=== PATIENT | female | born 1955 | race Caucasian/White ===

== ENCOUNTER 2025-04-12 00:20 | Emergency (ER) | payer MEDICARE, OTHER, SELFPAY ==
[2025-04-12 00:21] VITALS: BMI 25.8
--- NOTE | 2025-04-12 00:26 | XR_ITS ---
Examination: Wrist, right 3 views Technique: Wrist AP, oblique, lateral 3 views Date and time of exam: April 12, 2025 0047 hours INDICATIONS: Ground-level fall last night with injury to the wrist, wrist pain. FINDINGS: No acute fracture. No dislocation No foreign body IMPRESSION: No acute fracture
[2025-04-12 00:39] VITALS: BP 104/61; PULSE 54; RESP 18; TEMP 36.7; O2SAT 97
--- NOTE | 2025-04-12 01:28 | PD.EDHAND ---
Upper Extremity Injury RME/HPI General Chief Complaint: Hand/Wrist Problems Stated Complaint: FALL L WRIST INJURY Time Seen by Provider: 04/12/25 01:20 Arrival date/time: 04/12/25 00:20 69F with history of HRT presents to ED w/ L wrist/hand pain and slip and fall backwards today. There is also some R knee pain, but patient is not concerned about it. Patient denies hitting head/neck. Some hand numbness. Limitations: no limitations Related Data Home Medications ?Medication ?Instructions ?Recorded ?Confirmed estradiol 0.5 mg tablet 1 tab PO QDAY ##0 10/15/13 Allergies Allergy/AdvReac Type Severity Reaction Status Date / Time No Known Allergies Allergy Verified 04/12/25 00:24 Review of Systems Review of Systems Systems Reviewed: All systems reviewed, normal except as documented Constitutional Constitutional: Reports system reviewed and no additional complaints, except as documented, Denies fever(s) and Denies headache(s) ENT Ears, Nose, Mouth, and Throat: Denies disequilibrium and Denies headache(s) Cardiovascular Cardiovascular: Reports system reviewed and no additional complaints, except as documented, Denies chest pain and Denies dyspnea Respiratory Respiratory: Reports system reviewed and no additional complaints, except as documented, Denies cough and Denies dyspnea Gastrointestinal Gastrointestinal: Reports system reviewed and no additional complaints, except as documented, Denies abdominal pain, Denies nausea and Denies vomiting Musculoskeletal Musculoskeletal: Reports as per HPI and Reports arthralgias Neurologic Neurologic: Reports system reviewed and no additional complaints, except as documented, Denies confusion, Denies disequilibrium and Denies headache(s) Psychiatric Psychiatric: Denies confusion Past Medical History Social History SMOKING STATUS: Never smoker ED Exam General Limitations: Present no limitations General appearance: Present alert and in no apparent distress Head Head exam: Present atraumatic Eye Eye exam: Present normal appearance, PERRL and EOMI ENT ENT exam: Present normal exam, normal oropharynx and mucous membranes moist Neck Neck exam: Present normal inspection, full ROM and trachea midline Chest Chest inspection: Present normal inspection and symmetric chest wall rise Respiratory Respiratory exam: Present normal lung sounds bilaterally Cardiovascular Cardiovascular exam: Present regular rate, normal rhythm and normal heart sounds Abdominal Exam Abdominal exam: Present soft and normal bowel sounds Expanded Upper Extremity Exam Forearm/Wrist exam: Present tenderness (L) and tenderness over anatomical snuff box Hand exam: Present tenderness Back Exam Back exam: Present normal inspection and full ROM Neurological Exam Neurological exam: Present alert, oriented X3 and CN II-XII intact Psychiatric Psychiatric exam: Present normal affect and normal mood Skin Skin exam: Present warm, dry, intact and normal color Course Quality Measures none Orders Category Date Time Status Splint / Immobilizer STAT Care 04/12/25 01:22 Active XR wrist comp LT min 3V Stat Exams 04/12/25 00:26 Taken HYDROcodone*/APAP 5/325 [[place] 5/325] Med 04/12/25 01:22 Discontinued 1 tab PO X1 ONE Vital Signs Vital signs: Vital Signs Temperature 98.1 F 04/12/25 00:39 Pulse Rate 54 L 04/12/25 00:39 Respiratory Rate 18 04/12/25 00:39 Blood Pressure 104/61 04/12/25 00:39 Pulse Oximetry (%) 97 04/12/25 00:39 Oxygen Delivery Method Room Air 04/12/25 00:39 O2 at 97% on RA and WNLs Extremity Injury MDM Narrative MDM Narrative:: 69F with history of HRT presents to ED w/ L wrist/hand pain and slip and fall backwards today. There is also some R knee pain, but patient is not concerned about it. Patient denies hitting head/neck. Some hand numbness. Physical exam reveals L wrist/hand tenderness, including anatomic snuffbox, and reduced ROM. No obvious swelling. R knee unremarkable. Gait normal. Speech normal. Patient is afebrile, calm, and alert. Wet XR read no gross fx pending official report. Will splint given anatomic snuffbox tenderness. Patient data External records reviewed:: None Clinical information provided by:: patient Social determinants that could affect healthcare access:: none Patient has the following chronic illnesses:: HRT How is presenting disease/condition affected by chronic disease/condition?: uneffected by Evaluation data The following diagnostics were reviewed and interpreted by me:: radiology exam(s) Lab and/or radiology exams considered but not ordered:: ordered Interpretation Summary: above Medications / Prescriptions Medications or Prescriptions considered but not ordered:: ordered Medication administrations:: Medication Administration History Discontinued Medications Hydrocodone Bitart/Acetaminophen (Hydrocodone/[place] 5/325 Tablet) 1 tab PO X1 ONE Stop: 04/12/25 01:23 above Consultations Consultation(s) initiated? (list below): No Diagnosis Upper Extremity Injury Differential Diagnosis: sprain and strain of wrist, fracture of wrist, finger sprain, dislocation of finger, Colles' fracture and fracture of hand Most likely diagnosis given after review of the tests above:: sprain and strain of wrist Admission Indicated Admission indicated?: not indicated Admission Request Was there a request for admission?: No Disposition Plan Disposition Plan: Discharge Discharge Attestation Discharge Attestation: The patient and all family members were given an opportunity to ask questions and understood the discharge instructions. Discharge instructions specifically effects, indications for sooner follow up or return to the emergency department, and the expected course of current diagnosis. Patient condition: Stable Discharge Plan Plan Patient Disposition: HOME (Self Care) Discharge Disposition comment: Stable Prescriptions/Referrals Prescriptions/Med Rec: No Action estradiol 0.5 MG tablet 1 tab PO QDAY Qty: 0 Problem List Clinical Impression: Sprain and strain of wrist Patient/Caregiver Discharge Instructions Education Materials: ED Wrist Sprain Additional Instructions: Please follow-up with PCP within 24-48 hours and return immediately if symptoms worsen. If problem persists, recommend outpatient PT and/or MRI follow-up. In the meantime, rest, use ice/heat, and/or compression. Follow-up with Patient Portal or Medical Records for official XR read. Print Language: Kyr[place]z Stand Alone Forms: Patient Portal Info Letter MORRIS/ELIAS Supervising Physician MORRIS/ELIAS Supervising Physician: Dr. Cole
[2025-04-12] MEDS: HYDROcodone/APAP 5/325 TABLET 1 TAB PO (02:11)
== END 2025-04-12 02:16 | disposition home or self-care (01) ==
PROVIDERS: Emergency Provider Emergency Medicine; PCP Family Medicine
DX: S63.502A Unspecified sprain of left wrist, initial encounter (principal); S66.912A Strain of unspecified muscle, fascia and tendon at wrist and hand level, left hand, initial encounter; W01.0XXA Fall on same level from slipping, tripping and stumbling without subsequent striking against object, initial encounter
CPT/HCPCS: 29125; 73110; 99284; A9270